=== PATIENT | male | born 2000 | race Two or more races ===

== ENCOUNTER 2021-08-05 01:42 | Inpatient (IN) | payer MEDICAID ==
[~2021-08-05] VITALS: Ht 180.3 cm; Wt 103.4 kg
[2021-08-05 02:07] LABS: BASOPHILS % (AUTO) 0.6 % (0.0-2.0); EOSINOPHILS % (AUTO) 6.8 % (1.0-6.0); HEMATOCRIT 49.8 % (41-53); HEMOGLOBIN 17.2 g/dL (13.5-17.5); LYMPHOCYTES # (AUTO) 2.9 K/uL (1.0-4.8); LYMPHOCYTES % (AUTO) 33.3 % (22.0-44.0); MEAN CORPUSCULAR HEMOGLOBIN 31.2 pg (26.0-34.0); MEAN CORPUSCULAR HGB CONC 34.6 G/dL (31.0-37.0); MEAN CORPUSCULAR VOLUME 90 fL (80-100); MONOCYTES # (AUTO) 0.8 K/uL (0.1-1.0); MONOCYTES % (AUTO) 9.5 % (2.0-9.0); NEUTROPHILS # (AUTO) 4.3 K/uL (1.8-7.7); NEUTROPHILS % (AUTO) 49.8 % (40.0-70.0); PLATELET COUNT (AUTO) 276 K/uL (150-450); RED BLOOD CELL COUNT(AUTO) 5.52 MIL/uL (4.50-5.90); RED CELL DISTRIBUTION WIDTH 13.4 % (11.5-14.5)
[2021-08-05 02:15] LABS: ANION GAP 4 mmol/L (8-16); CALCIUM, TOTAL 9.1 mg/dL (8.8-10.5); CARBON DIOXIDE 30 mmol/L (22-29); CHLORIDE 105 mmol/L (98-107); CREATININE 1.17 mg/dL (0.60-1.30); GLOMERULAR FILTR. RATE CALC > 60 mL/min (>60); GLUCOSE,RANDOM 110 mg/dL (70-110); POTASSIUM 4.6 mmol/L (3.5-5.1); SODIUM SERUM 139 mmol/L (136-145); UREA NITROGEN, BLOOD 17 mg/dL (7-18)
[2021-08-05 02:20] LABS: ALANINE AMINOTRANSFERASE 51 U/L (12-78); ALKALINE PHOSPHATASE 107 U/L (46-116); ASPARTATE AMINOTRANSFERASE 24 U/L (15-37); BILIRUBIN,TOTAL 0.5 mg/dL (0.1-1.0); TOTAL PROTEIN, SERUM 7.9 g/dL (6.4-8.2)
[2021-08-05 02:22] LABS: ACETAMINOPHEN < 2 mcg/mL (10-30)
[2021-08-05 02:49] LABS: COVID AG,FIA SOURCE NASOPHARYNGEAL
[2021-08-05 03:09] LABS: SALICYLATE < 0.2 mg/dL (2.8-20.0)
[2021-08-05] MEDS ORDERED: LORazepam 2 MG TABLET PO PRN (03:30)
[2021-08-05] MEDS ORDERED: ZOLPIDEM TARTRATE 10 MG TABLET PO PRN (03:30)
[2021-08-05] MEDS ORDERED: HALOPERIDOL 5 MG TABLET PO PRN (03:30)
[2021-08-05 10:11] VITALS: BP 136/86
[2021-08-05] MEDS ORDERED: INFLUENZA VIRUS VACCINE QVS 2021-22 (6MO+)/PF 60 MCG/0.5 ML SYRINGE IM. ONE (11:30)
[2021-08-05] MEDS ORDERED: LOPERAMIDE HCL 2 MG CAPSULE PO PRN (15:45)
[2021-08-05] MEDS ORDERED: MAGNESIUM HYDROXIDE SUSPENSION 30 ML UDCUP PO PRN (15:45)
[2021-08-05] MEDS ORDERED: MAG HYDROX/AL HYDROX/SIMETH ES 30 ML SUSPENSION UDCUP PO PRN (15:45)
[2021-08-05] MEDS ORDERED: ACETAMINOPHEN 325 MG TABLET PO PRN (15:45)
[2021-08-05] MEDS ORDERED: PROMETHAZINE HCL 25 MG TABLET PO PRN (15:45)
[2021-08-05] MEDS ORDERED: HydrOXYzine PAMOATE 50 MG CAPSULE PO PRN (15:45)
[2021-08-05] MEDS ORDERED: TUBERCULIN, PURIFIED PROTEIN DERIVATIVE 5 TU/0.1 ML SYRINGE ID ONE (15:45)
[2021-08-05] MEDS ORDERED: GuaiFENesin/D-METHORPHAN [SUGAR-FREE] 200-20MG/10 ML SYRUP UDCUP PO PRN (15:45)
[2021-08-05 16:27] VITALS: BP 124/68
[2021-08-05] MEDS: THIAMINE 100 MG TABLET PO SCH (17:03)
[2021-08-05] MEDS: MELATONIN 5 MG TABLET PO SCH (20:40)
[2021-08-06 05:48] VITALS: BP 133/72
[2021-08-06 08:08] LABS: HEMOGLOBIN A1C 5.2 % (3.8-5.6)
[2021-08-06 08:34] LABS: CHOL/HDL RATIO 4.1 (4.2-7.3); THYROID STIMULATING HORMONE 0.87 uIU/mL (0.36-3.74)
[2021-08-06 08:40] VITALS: BP 110/66
[2021-08-06] MEDS: THIAMINE 100 MG TABLET PO SCH ×2 (09:14→16:10)
[2021-08-06] MEDS: FLUoxetine HCL 20 MG CAPSULE PO SCH (09:14)
[2021-08-06] MEDS: OMEGA-3/DHA/EPA/FISH OIL 1,000 MG CAPSULE PO SCH (09:14)
[2021-08-06] MEDS: FOLIC ACID 1 MG TABLET PO SCH (09:14)
[2021-08-06] MEDS: MULTIVITAMINS WITH MINERALS, THERAPEUTIC TABLET PO SCH (09:14)
[2021-08-06] MEDS ORDERED: PROZ20 PO (16:08)
[2021-08-06] MEDS ORDERED: MELA5TAB40 PO (16:08)
[2021-08-06] MEDS ORDERED: OMEG-135 PO (16:08)
[2021-08-06 16:30] VITALS: BP 117/75
[2021-08-06] MEDS: MELATONIN 5 MG TABLET PO SCH (20:13)
[2021-08-07 01:14] VITALS: BP 124/72
[2021-08-07] MEDS: OMEGA-3/DHA/EPA/FISH OIL 1,000 MG CAPSULE PO SCH (08:07)
[2021-08-07] MEDS: THIAMINE 100 MG TABLET PO SCH (08:07)
[2021-08-07] MEDS: FLUoxetine HCL 20 MG CAPSULE PO SCH (08:07)
[2021-08-07] MEDS: FOLIC ACID 1 MG TABLET PO SCH (08:07)
[2021-08-07] MEDS: MULTIVITAMINS WITH MINERALS, THERAPEUTIC TABLET PO SCH (08:07)
[2021-08-07 08:25] VITALS: BP 111/60
== END 2021-08-07 10:30 | disposition home or self-care (01) | DRG 751 ==
LOC: EMS 01:43 → B2S 07:16
PROVIDERS: ADMIT Psychiatry & Neurology Psychiatry; ATTEND Psychiatry & Neurology Psychiatry
DX: F32.2 Major depressive disorder, single episode, severe without psychotic features (principal); F06.32 Mood disorder due to known physiological condition with major depressive-like episode; J45.909 Unspecified asthma, uncomplicated; Z20.822 Contact with and (suspected) exposure to COVID-19; Z55.9 Problems related to education and literacy, unspecified; Z59.9 Problem related to housing and economic circumstances, unspecified; Z63.9 Problem related to primary support group, unspecified; Z65.3 Problems related to other legal circumstances; Z88.0 Allergy status to penicillin; Z28.21 Immunization not carried out because of patient refusal; T39.312A Poisoning by propionic acid derivatives, intentional self-harm, initial encounter; Y92.098 Other place in other non-institutional residence as the place of occurrence of the external cause
CPT/HCPCS: 80053; 80061; 83036; 84439; 84443; 85025; 86592; 93005; 99285; G0480; G0481; Q9967